=== PATIENT | female | born 1955 | race Caucasian/White ===

== ENCOUNTER → 2016-10-06 | Outpatient (REF) | payer BC ==
[2016-10-06 11:59] LABS: BASO % 0.8 % (0.0-1.0); EOS # 0.2 K/mm3 (0.0-0.50); EOS % 3.3 % (0.0-3.0); LARGE UNSTAINED CELL # 0.1 K/mm3 (0.0-0.4); LARGE UNSTAINED CELL % 1.5 % (0.0-4.0); LYMPH # 1.8 K/mm3 (1.5-4.5); LYMPH % 36.7 % (24.0-44.0); MEAN CORPUSCULAR HEMOGLOBIN 33.1 pg (27.0-33.0); MEAN CORPUSCULAR HGB CONC 35.5 g/dl (32.0-36.5); MONO # 0.3 K/mm3 (0.0-0.8); MONO % 5.8 % (0.0-5.0); NEUTROPHILS # 2.5 K/mm3 (1.8-7.7); NEUTROPHILS % 51.9 % (36.0-66.0); PLATELET COUNT, AUTOMATED 258 k/mm3 (150-450); RED CELL DISTRIBUTION WIDTH 13.1 % (11.5-14.5); WHITE BLOOD COUNT 4.8 K/mm3 (4.0-10.0)
[2016-10-06 12:54] LABS: ALBUMIN 3.3 GM/DL (3.2-5.2); ALBUMIN/GLOBULIN RATIO 1.03 (1.00-1.93); ALKALINE PHOSPHATASE 131 U/L (45-117); ALT/SGPT 26 U/L (12-78); ANION GAP 9 MEQ/L (8-16); AST/SGOT 21 U/L (15-37); BILIRUBIN,TOTAL 0.7 MG/DL (0.2-1.0); BLOOD UREA NITROGEN 13 MG/DL (7-18); CALCIUM LEVEL 8.8 MG/DL (8.8-10.2); CARBON DIOXIDE LEVEL 27 MEQ/L (21-32); CHLORIDE LEVEL 106 MEQ/L (98-107); CHOLESTEROL LEVEL 235 MG/DL (<200); CREATININE FOR GFR 0.83 MG/DL (0.55-1.02); GLOMERULAR FILTRATION RATE > 60.0 (>45); GLUCOSE, FASTING 88 MG/DL (80-110); POTASSIUM SERUM 4.9 MEQ/L (3.5-5.1); SODIUM LEVEL 142 MEQ/L (136-145); TOTAL PROTEIN 6.5 GM/DL (6.4-8.2); TRIGLYCERIDES LEVEL 268 MG/DL (<150)
== END ==
LOC: M LAB REF 09:40
PROVIDERS: ATTEND Physician Assistant
DX: I10 Essential (primary) hypertension (principal); E78.5 Hyperlipidemia, unspecified

== ENCOUNTER 2020-09-20 15:15 | Emergency (ER) | payer BC, MEDICARE ==
[~2020-09-20] VITALS: Ht 170.2 cm; Wt 103.2 kg
[2020-09-20] MEDS ORDERED: OMEP-218 PO (15:33)
[2020-09-20] MEDS ORDERED: GABA-283 PO (15:33)
[2020-09-20] MEDS ORDERED: ROPI1TAB86 PO (15:33)
[2020-09-20] MEDS ORDERED: DULO1CAP6 PO (15:33)
[2020-09-20] MEDS ORDERED: fentaNYL 100 MCG/2 ML INJECTION (J3010) IV ONE ×3 (16:00→17:19)
--- NOTE | 2020-09-20 16:34 | REP ---
INDICATION: trauma. COMPARISON: None. TECHNIQUE: Three views FINDINGS: The prosthetic femoral head is dislocated cephalad and posteriorly. There are no fractures of the right femur. IMPRESSION: Dislocation of the hip dated no fracture. <Electronically signed by Ghanshyam Guerrero > 09/20/20 [id number]
--- NOTE | 2020-09-20 16:34 | REP ---
INDICATION: trauma. COMPARISON: None. TECHNIQUE: Three views FINDINGS: Postoperative changes after total hip replacement bed the prosthetic femoral head is dislocated posteriorly and superiorly from the acetabulum. IMPRESSION: Dislocation of the hip. No fracture. <Electronically signed by Ghanshyam Guerrero > 09/20/20 [id number]
[2020-09-20] MEDS ORDERED: NS 1,000 ML IV SCH (17:00)
[2020-09-20 17:10] LABS: BASO % 0.3 % (0.0-1.0); EOS # 0.1 10^3/uL (0.0-0.5); EOS % 0.7 % (0.0-3.0); HEMATOCRIT 41.7 % (36.0-47.0); HEMOGLOBIN 13.7 g/dl (12.0-15.5); LYMPH # 1.4 10^3/uL (1.5-5.0); LYMPH % 14.9 % (24.0-44.0); MEAN CORPUSCULAR HEMOGLOBIN 31.3 pg (27.0-33.0); MEAN CORPUSCULAR HGB CONC 32.9 g/dl (32.0-36.5); MEAN CORPUSCULAR VOLUME 95.2 fl (80.0-96.0); MONO # 0.6 10^3/uL (0.0-0.8); MONO % 5.7 % (2.0-8.0); NEUTROPHILS # 7.5 10^3/uL (1.5-8.5); NEUTROPHILS % 77.9 % (36.0-66.0); PLATELET COUNT, AUTOMATED 286 10^3/uL (150-450); RED BLOOD COUNT 4.38 10^6/uL (4.00-5.40); WHITE BLOOD COUNT 9.7 10^3/uL (4.0-10.0)
[2020-09-20] MEDS: propofoL 200 MG/20 ML VIAL IV.PROC PRN ×2 (17:16→17:20)
[2020-09-20] MEDS ORDERED: LIDOCAINE 1% MDV 50ML VIAL As Ordered ONE (17:19)
[2020-09-20] MEDS ORDERED: LIDOCAINE 1% MDV 50ML VIAL SC ONE (17:20)
[2020-09-20 17:31] LABS: BLOOD UREA NITROGEN 21 MG/DL (7-18); CALCIUM LEVEL 8.5 MG/DL (8.8-10.2); CARBON DIOXIDE LEVEL 28 MEQ/L (21-32); CHLORIDE LEVEL 107 MEQ/L (98-107); CREATININE FOR GFR 0.82 MG/DL (0.55-1.30); GLOMERULAR FILTRATION RATE > 60.0 (>45); GLUCOSE, FASTING 117 MG/DL (70-100); POTASSIUM SERUM 4.7 MEQ/L (3.5-5.1); SODIUM LEVEL 139 MEQ/L (136-145)
--- NOTE | 2020-09-20 18:33 | REPVR ---
PROCEDURE INFORMATION: Exam: XR Right Hip Exam date and time: 09/20/2020 5:27 PM Age: 65 years old Clinical indication: Other: Post reduction TECHNIQUE: Imaging protocol: XR Right hip. Views: 2 or 3 views hip with pelvis when performed. COMPARISON: CR Hip,AP,LAT to include Pelvis RIGHT 09/20/2020 3:52 PM FINDINGS: Tubes, catheters and devices: Anatomic alignment of the prosthesis with no evidence of loosening or fracture. Bones/joints: Right total hip prosthesis. The femoral head component of the prosthesis has been reduced into position in the acetabulum component of the prosthesis. Soft tissues: Unremarkable. IMPRESSION: Satisfactory postreduction appearance of right hip prosthesis Electronically signed by: Serina Andre On 09/20/2020 18:32:44 PM
[2020-09-20 19:28] VITALS: BP 132/74
--- NOTE | 2020-09-21 17:52 | CR ---
CONSULTATION DATE: 09/21/2020 REASON FOR CONSULTATION: Right hip pain and deformity. CHIEF COMPLAINT: Right hip pain and deformity. HISTORY OF PRESENT ILLNESS: The patient is a 65-year-old female with a prior history of right total hip arthroplasty with posterior approach who is getting out of a boat awkwardly on the day of presentation, and she got out awkwardly and noticed her hip popped out of place and she had immediate onset of pain and inability to bear weight. She presented to the Emergency Department for further evaluation. She was found to have a right periprosthetic hip dislocation posterior and Orthopedics was consulted for further evaluation and management. PAST MEDICAL HISTORY: The patient's past medical history is significant for: 1. Restless leg syndrome. 2. Gastroesophageal reflux disease. PAST SURGICAL HISTORY: The patient's past surgical history is significant for: 1. Right total hip arthroplasty 2. Bilateral knee arthroplasty. Otherwise noncontributory. REVIEW OF SYSTEMS: A 10-point review of systems was conducted and all was negative except for as listed in the HPI. ALLERGIES: NONE. MEDICATIONS: See Med Reconciliation. SOCIAL HISTORY: She is from [place], visiting up here in the [facility]. PHYSICAL EXAMINATION: GENERAL APPEARANCE: Well-developed, well-nourished, in no acute distress, awake, alert, and oriented x4. PSYCH: Normal mood and affect. HEART: Regular rate and rhythm. RESPIRATORY: Non-labored breathing. Symmetric chest rise and fall. ABDOMEN: Nontender. SKIN: Intact. abrasions of the skin. EXTREMITIES: Focused exam of the right hip demonstrates shortened and internally rotated right lower extremity. The patient has pain deep in the groin. No other areas of pain in the thigh, knee or leg or foot or ankle. The patient is able to move the hip and because of the hip problem, she has limited range of motion of her knee but no pain. Ankle motion is full. She is otherwise neurovascularly intact distally with regards to sensation to light touch and tibial nerve. and tibialis anterior. She has 2+ DP and PT pulses and brisk capillary refill in all digits. IMAGING: Review of the radiographs of the right hip and pelvis demonstrate a posteriorly dislocated right total hip arthroplasty component, but the components are still in place. No periprosthetic fractures seen. ASSESSMENT: This is a 65-year-old female status post posterior right total hip arthroplasty about 3 or 4 years ago with a first time posterior dislocation. I had a long discussion with the patient regarding the nature of the condition and the treatment options. I have recommended conscious sedation and closed reduction for her. Consent was obtained and the patient was sedated and a closed reduction was performed. Post reduction radiographs demonstrate appropriate positioning of the implants and the patient's right lower extremity was no longer in shortened and internally rotated position. A knee immobilizer was then placed to put her in the abducted position. I had discussion with the patient the risks of further dislocation and recommend that she see her orthopedic surgeon as soon as she gets back to her home in [place]. The patient understands this and was then later discharged from the Emergency Department with no further questions. She tolerated that procedure well without any complications. I did also awake overnight counselor the patient on posterior precautions in addition to the knee immobilizer and abduction position.
== END 2020-09-20 19:31 | disposition home or self-care (01) ==
LOC: M ED 15:15 → EDBD 15:15 → M ED 19:31
DX: S73.004A Unspecified dislocation of right hip, initial encounter (principal); X50.9XXA Other and unspecified overexertion or strenuous movements or postures, initial encounter; Y92.89 Other specified places as the place of occurrence of the external cause; G25.81 Restless legs syndrome; Z96.649 Presence of unspecified artificial hip joint; Z79.899 Other long term (current) drug therapy; Z88.5 Allergy status to narcotic agent; F17.210 Nicotine dependence, cigarettes, uncomplicated
CPT/HCPCS: 27250; 73502; 73552; 80048; 85025; 93041; 96361; 96374; 99152; 99153; 99285; J3010